=== PATIENT | female | born 1970 | race Caucasian/White ===

== ENCOUNTER → 2016-05-15 | Outpatient (CLI) | payer BC ==
--- NOTE | 2016-05-16 09:07 | MM ---
Reason for exam: screening (asymptomatic). Last mammogram was performed 3 years and 8 months ago. History: Patient had first child at age 37. Benign right breast needle localzation of the right breast, October 06, 2010. Benign US right guided VAD of the right breast, September 07, 2009. Benign ultrasound-guided core biopsy of the left breast, April 16, 2001. Core biopsy of the left breast. Took hormonal contraceptives for 6 years beginning at age 33. Physical Findings: A clinical breast exam by your physician is recommended on an annual basis and results should be correlated with mammographic findings. MG Screening Mammo w CAD Bilateral CC and MLO view(s) were taken. Prior study comparison: September 23, 2012, bilateral digital screening mammo w/CAD. September 20, 2010, CAD bilateral diagnostic mammogram. Finding: There are indeterminate round, segmental calcifications in the upper outer quadrant of the left breast. New finding since September 23, 2012 and September 20, 2010. ASSESSMENT: Incomplete: need additional imaging evaluation, BI-RAD 0 RECOMMENDATION: Special view mammogram of the left breast. [facility] will attempt to contact patient to return for supplemental views.
== END ==
LOC: RADMAMWWP 08:47
PROVIDERS: ATTEND Family Medicine
DX: Z12.31 Encounter for screening mammogram for malignant neoplasm of breast (principal)

== ENCOUNTER → 2016-05-18 | Outpatient (CLI) | payer BC ==
--- NOTE | 2016-05-18 09:12 | MM ---
Reason for exam: additional evaluation requested from abnormal screening. Last mammogram was performed less than 1 month ago. History: Patient had first child at age 37. Benign right breast needle localzation of the right breast, October 06, 2010. Benign US right guided VAD of the right breast, September 07, 2009. Benign ultrasound-guided core biopsy of the left breast, April 16, 2001. Core biopsy of the left breast. Took hormonal contraceptives for 6 years beginning at age 33. Physical Findings: Nurse did not find any significant physical abnormalities on exam. MG Work Up Mamm w CAD LT ML, CC with magnification, and ML with magnification view(s) were taken of the left breast. Prior study comparison: May 15, 2016, bilateral MG screening mammo w CAD. September 23, 2012, bilateral digital screening mammo w/CAD. Finding: There are new, indeterminate calcifications in the upper outer quadrant of the left breast for which a tissue biopsy is recommended. These results were verbally communicated with the patient and result sheet given to the patient on 05/18/16. ASSESSMENT: Suspicious, BI-RAD 4 RECOMMENDATION: Stereotactic core biopsy of the left breast. Called Dr. Hall with mammographic findings and the office states they will contact patient to set up appointment after they receive report. PRELIMINARY REPORT CALLED AND FAXED TO DR. HALL ON 05/18/16 AT 300/TMP.
== END ==
LOC: RADMAMWWP 06:57
PROVIDERS: ATTEND Family Medicine
DX: R92.8 Other abnormal and inconclusive findings on diagnostic imaging of breast (principal)

== ENCOUNTER → 2018-10-09 | Outpatient (CLI) | payer BC ==
--- NOTE | 2018-10-10 15:02 | MM ---
Reason for exam: screening (asymptomatic). Last mammogram was performed 2 years and 5 months ago. History: Patient had first child at age 37. Benign right breast needle localzation of the right breast, October 06, 2010. Benign US right guided VAD of the right breast, September 07, 2009. Benign ultrasound-guided core biopsy of the left breast, April 16, 2001. Core biopsy of the left breast. Took hormonal contraceptives for 6 years beginning at age 33. Physical Findings: A clinical breast exam by your physician is recommended on an annual basis and results should be correlated with mammographic findings. MG Screening Mammo w CAD Bilateral CC and MLO view(s) were taken. Prior study comparison: May 18, 2016, left breast MG work up mamm w CAD LT. May 15, 2016, bilateral MG screening mammo w CAD. The breast tissue is heterogeneously dense. This may lower the sensitivity of mammography. There is a stable left upper outer quadrant mass at middle depth. There are similar left calcifications with associated biopsy marker in the upper outer quadrant. No suspicious abnormality. ASSESSMENT: Benign, BI-RAD 2 RECOMMENDATION: Routine screening mammogram of both breasts in 1 year.
== END | disposition home or self-care (01) ==
LOC: RADMAMWWP 14:24
PROVIDERS: ATTEND Obstetrics & Gynecology
DX: Z12.31 Encounter for screening mammogram for malignant neoplasm of breast (principal)
CPT/HCPCS: 77067

== ENCOUNTER → 2020-05-24 | Outpatient (CLI) | payer BC ==
--- NOTE | 2020-05-24 11:18 | MM ---
Reason for exam: screening (asymptomatic). Last mammogram was performed 1 year and 7 months ago. History: Patient had first child at age 37. Benign right breast needle localzation of the right breast, October 06, 2010. Benign US right guided VAD of the right breast, September 07, 2009. Benign ultrasound-guided core biopsy of the left breast, April 16, 2001. Core biopsy of the left breast. Took hormonal contraceptives for 6 years beginning at age 33. Physical Findings: A clinical breast exam by your physician is recommended on an annual basis and results should be correlated with mammographic findings. MG Screening Mammo w CAD Bilateral CC and MLO view(s) were taken. Prior study comparison: October 09, 2018, bilateral MG screening mammo w CAD. May 18, 2016, left breast MG work up mamm w CAD LT. The breast tissue is heterogeneously dense. This may lower the sensitivity of mammography. There is chronic nodularity in the left breast. No significant changes when compared with prior studies. ASSESSMENT: Benign, BI-RAD 2 RECOMMENDATION: Routine screening mammogram of both breasts in 1 year.
== END | disposition home or self-care (01) ==
LOC: RADMAMWWP 07:12
PROVIDERS: ATTEND Family Medicine
DX: Z12.31 Encounter for screening mammogram for malignant neoplasm of breast (principal)
CPT/HCPCS: 77067

== ENCOUNTER → 2021-05-30 | Outpatient (CLI) | payer BC ==
--- NOTE | 2021-05-31 09:32 | MM ---
Reason for exam: screening (asymptomatic). Last mammogram was performed 1 year ago. History: Patient had first child at age 37. Benign right breast needle localzation of the right breast, October 06, 2010. Benign US right guided VAD of the right breast, September 07, 2009. Benign ultrasound-guided core biopsy of the left breast, April 16, 2001. Core biopsy of the left breast. Took hormonal contraceptives for 6 years beginning at age 33. Physical Findings: A clinical breast exam by your physician is recommended on an annual basis and results should be correlated with mammographic findings. MG 3D Screening Mammo W/Cad Bilateral CC and MLO view(s) were taken. Prior study comparison: May 24, 2020, bilateral MG screening mammo w CAD. October 09, 2018, bilateral MG screening mammo w CAD. The breast tissue is heterogeneously dense. This may lower the sensitivity of mammography. Previous mammotome biopsy in the left breast stable adjacent regional calcifications. 12-1 o'clock nodularity left breast has slightly increasing calcification, magnification views recommended. ASSESSMENT: Incomplete: need additional imaging evaluation, BI-RAD 0 RECOMMENDATION: Special view mammogram of the left breast. (magnification views for calcifications and nodularity) [facility] will attempt to contact patient to return for supplemental views.
== END | disposition home or self-care (01) ==
LOC: RADMAMWWP 08:05
PROVIDERS: ATTEND Family Medicine
DX: Z12.31 Encounter for screening mammogram for malignant neoplasm of breast (principal)
CPT/HCPCS: 77063; 77067

== ENCOUNTER → 2021-06-07 | Outpatient (CLI) | payer BC ==
--- NOTE | 2021-06-07 14:05 | MM ---
Reason for exam: additional evaluation requested from abnormal screening. Last mammogram was performed less than 1 month ago. History: Patient had first child at age 37. Benign stereotactic core biopsy of the left breast, 2018. Benign right breast needle localzation of the right breast, October 06, 2010. Benign US right guided VAD of the right breast, September 07, 2009. Benign ultrasound-guided core biopsy of the left breast, April 16, 2001. Core biopsy of the left breast. Took hormonal contraceptives for 6 years beginning at age 33. Physical Findings: Nurse did not find any significant physical abnormalities on exam. MG 3D Work Up W/Cad LT CC with magnification, LM with magnification, and LM view(s) were taken of the left breast. Prior study comparison: May 30, 2021, bilateral MG 3d screening mammo w/cad. May 24, 2020, bilateral MG screening mammo w CAD. The breast tissue is heterogeneously dense. This may lower the sensitivity of mammography. Stable nodules left breast. A few probably benign calcifications. 6 month follow up recommended. These results were verbally communicated with the patient and result sheet given to the patient on 06/07/21. ASSESSMENT: Probably benign, BI-RAD 3 RECOMMENDATION: Follow-up diagnostic mammogram of the left breast in 6 months.
== END | disposition home or self-care (01) ==
LOC: RADMAMWWP 13:29
PROVIDERS: ATTEND Family Medicine
DX: R92.8 Other abnormal and inconclusive findings on diagnostic imaging of breast (principal)
CPT/HCPCS: 77061; 77065

== ENCOUNTER → 2022-12-25 | Outpatient (CLI) | payer MEDICAID ==
--- NOTE | 2022-12-25 08:59 | USB ---
Reason for Exam: Follow-up at short interval from prior study. Patient History: Menarche at age 11. First Full-Term at age 37. Late child-bearing (after 30). Postmenopausal. Hormonal Contraceptives for 6 years from age 33 until age 39. 2018, Benign Stereotactic Core Biopsy on the left side. Core Biopsy on the Left side. 10/06/2010, Benign Excisional Biopsy on the right side. 09/07/2009, Benign Core Biopsy on the right side. 04/16/2001, Benign Ultrasound-Guided Core Biopsy on the left side. Risk Values: Qing 5 year model risk: 2.4%. NCI Lifetime model risk: 16.5%. Prior Study Comparison: 05/30/2021 Bilateral Screening Mammogram, [facility]. 06/07/2021 Left Diagnostic Mammogram, [facility]. 06/12/2022 Bilateral MG 3D screening mammo w/cad, [facility]. 06/15/2022 Left US breast workup limited , [facility]. Findings: The upper outer quadrant of the left breast, the axilla of the left breast and the retroareolar of the left breast were scanned. No solid or cystic masses are identified.. Overall Assessment: Negative, BI-RAD 1 Management: Screening Mammogram of both breasts in 6 months. A clinical breast exam by your physician is recommended on an annual basis and results should be correlated with mammographic findings. This exam should not preclude additional follow-up of suspicious palpable abnormalities. Results were given to the patient verbally at the time of exam. Electronically signed and approved by: Abdelrahman Nguyen M.D. Radiologis
== END | disposition home or self-care (01) ==
LOC: RADUSWWP 08:21
PROVIDERS: ATTEND Family Medicine
DX: N60.02 Solitary cyst of left breast (principal); Z78.0 Asymptomatic menopausal state

== ENCOUNTER 2023-03-10 11:15 | Emergency (ER) | payer MEDICAID ==
[2023-03-10 11:26] VITALS: TEMP 98.1
[2023-03-10 13:18] LABS: Amphetamine Screen,Urine Not Detected (NotDetected); Barbiturate Screen,Urine Not Detected (NotDetected); Benzodiazepines Screen,Urine Not Detected (NotDetected); Cocaine Screen,Urine Not Detected (NotDetected); Methadone Screen, Urine Not Detected (NotDetected); Opiate Screen,Urine Not Detected (NotDetected); Oxycodone Screen, Urine Not Detected (NotDetected); Phencyclidine Screen,Urine Not Detected (NotDetected); Tricyclic Antidepressant,Urine Not Detected (NotDetected); Urn Cannabinoid Scrn Not Detected (NotDetected)
--- NOTE | 2023-03-10 14:37 | ED ---
Psych HPI - General Source: patient, RN notes reviewed Mode of arrival: ambulatory Limitations: no limitations <Anthony Hoffman - Last Filed: 03/10/23 14:35> <Hemalatha Marinelli - Last Filed: 03/11/23 00:53> - General Chief Complaint: Psychiatric Symptoms Stated Complaint: restless-neuro disorder Time Seen by Provider: 03/10/23 11:25 - History of Present Illness Initial Comments: 52-year-old female presents emergency Department with family for psychiatric evaluation. Patient's been having extreme difficulty since the loss of her in September. Patient states she was initially placed on diazepam for sleep but states that she started having severe reactions and was weaned off this. She states she follow-up psychiatry who placed her on Zyprexa was 12 days that she started having severe reactions. She follow-up with neurology at this point because she is still having symptoms in which they have diagnosed her with akathisia. Patient was placed on propranolol by neurology. Patient initially felt improved but still having worsening symptoms which family states that she is extremely manic, restless and that they're concerned about her safety at home. (Anthony Hoffman) - Related Data Home Medications Medication Instructions Recorded Confirmed Inulin/Chromium Picolinate [Fiber 2 tab PO HS PRN 06/23/19 03/10/23 Gummies Chew] L.acidoph,Paracasei, B.lactis 1 cap PO DAILY 06/23/19 03/10/23 [Probiotic] Ergocalciferol (Vitamin D2) 1,250 mcg PO SA 03/10/23 03/10/23 [Drisdol (50,000 Iu)] Levothyroxine Sodium [Synthroid] 50 mcg PO DAILY 03/10/23 03/10/23 Propranolol [Inderal] 20 mg PO BID 03/10/23 03/10/23 [employer] Multivitamin 1 tab PO DAILY 03/10/23 03/10/23 Thyroid,Pork [Door Frame Builder Thyroid] 30 mg PO DAILY 03/10/23 03/10/23 Allergies Allergy/AdvReac Type Severity Reaction Status Date / Time metoclopramide [From Reglan] AdvReac Tremors, Verified 03/10/23 14:32 suicidal thoughts Review of Systems ROS Other: All systems not noted in ROS Statement are negative. <Anthony Hoffman - Last Filed: 03/10/23 14:35> ROS Other: All systems not noted in ROS Statement are negative. <Hemalatha Marinelli - Last Filed: 03/11/23 00:53> ROS Statement: Those systems with pertinent positive or pertinent negative responses have been documented in the HPI. Past Medical History Past Medical History: GERD/Reflux, Hyperlipidemia, Thyroid Disorder Additional Past Medical History / Comment(s): Hx problems with yeast. History of Any Multi-Drug Resistant Organisms: None Reported Past Surgical History: Section, Cholecystectomy, Tonsillectomy Additional Past Surgical History / Comment(s): [place] teeth. Laparoscopy. [place] Breast biopsies Past Anesthesia/Blood Transfusion Reactions: No Reported Reaction Past Psychological History: Anxiety Smoking Status: Never smoker Past Alcohol Use History: Occasional Past Drug Use History: None Reported - Past Family History Father Family Medical History: Cancer, Pulmonary Embolus Additional Family Medical History / Comment(s): prostate CA Mother Family Medical History: Deep Vein Thrombosis (DVT) <Anthony Hoffman - Last Filed: 03/10/23 14:35> General Exam Limitations: no limitations General appearance: alert, in no apparent distress Head exam: Present: atraumatic, normocephalic, normal inspection Eye exam: Present: normal appearance, PERRL, EOMI. Absent: scleral icterus, conjunctival injection, periorbital swelling ENT exam: Present: normal exam, normal oropharynx, mucous membranes moist Neck exam: Present: normal inspection. Absent: tenderness, meningismus, lymphadenopathy Respiratory exam: Present: normal lung sounds bilaterally. Absent: respiratory distress, wheezes, rales, rhonchi, stridor Cardiovascular Exam: Present: regular rate, normal rhythm, normal heart sounds. Absent: systolic murmur, diastolic murmur, rubs, gallop, clicks Neurological exam: Present: alert, oriented X3 Psychiatric exam: Present: anxious Skin exam: Present: warm, dry, intact, normal color. Absent: rash <Anthony Hoffman - Last Filed: 03/10/23 14:35> Course Vital Signs 03/10/23 03/10/23 11:18 18:56 Temperature 98.1 F Pulse Rate 78 87 Respiratory 20 18 Rate Blood Pressure 131/89 128/82 O2 Sat by Pulse 99 97 Oximetry Medical Decision Making <Hemalatha Marinelli - Last Filed: 03/11/23 00:53> - Medical Decision Making Was pt. sent in by a medical professional or institution (, DRAGAN, HEAD CUSTODIAN, urgent care, hospital, or group home...) When possible be specific @ -No Did you speak to anyone other than the patient for history (EMS, parent, family, police, friend...)? What history was obtained from this source @ -Spoke with family Did you review nursing and triage notes (agree or disagree)? Why? @ -I reviewed and agree with nursing and triage notes Were old charts reviewed (outside hosp., previous admission, EMS record, old EKG, old radiological studies, urgent care reports/EKG's, group home records)? Report findings @ -No old charts were reviewed Differential Diagnosis (chest pain, altered mental status, abdominal pain women, abdominal pain men, vaginal bleeding, weakness, fever, dyspnea, syncope, headache, dizziness, GI bleed, back pain, seizure, CVA, palpatations, mental health, musculoskeletal)? @ -Differential Mental Health Depression, anxiety, bipolar, psychosis, schizophrenia, borderline personality, situational depression, adjustment disorder, behavioral disorder, brain tumor, malingering, substance abuse, encephalopathy, medication reaction, dementia, hypothyroidism, degenerative neurologic disorder, lupus.... This is not meant to be all-inclusive list EKG interpreted by me (3pts min.). @ -Not completed X-rays interpreted by me (1pt min.). @ -None done CT interpreted by me (1pt min.). @ -None done U/S interpreted by me (1pt. min.). @ -None done What testing was considered but not performed or refused? (CT, X-rays, U/S, labs)? Why? @ -None What meds were considered but not given or refused? Why? @ -None Did you discuss the management of the patient with other professionals (professionals i.e. , DRAGAN, HEAD CUSTODIAN, lab, RT, psych nurse, manager social media, missile and missile checkout technician, teacher, us customs and border officer, correctional case records supervisor)? Give summary @ -discussed care with EPS nurse Madeline Was smoking cessation discussed for >3mins.? @ -No Was critical care preformed (if so, how long)? @ -No Were there social determinants of health that impacted care today? How? (Homelessness, low income, unemployed, alcoholism, drug addiction, transportation, low edu. Level, literacy, decrease access to med. care, [facility], rehab)? @ -No Was there de-escalation of care discussed even if they declined (Discuss DNR or withdrawal of care, Hospice)? DNR status @ -No What co-morbidities impacted this encounter? (DM, HTN, Smoking, COPD, CAD, Cancer, CVA, ARF, Chemo, Hep., AIDS, mental health diagnosis, sleep apnea, morbid obesity)? @ -Depression Was patient admitted / discharged? Hospital course, mention meds given and route, prescriptions, significant lab abnormalities, going to OR and other pertinent info. @ -Upon arrival patient was placed into 24. She is evaluated by EPS. They do feel that the patient is stable for discharge home. She does have family that will take care of her. Instructed to follow-up with her psychiatrist return for any new or worsening symptoms. Patient was agreeable to plan she was discharged in stable condition Undiagnosed new problem with uncertain prognosis? @ -No Drug Therapy requiring intensive monitoring for toxicity (Heparin, Nitro, Insulin, Cardizem)? @ -No Were any procedures done? @ -No Diagnosis/symptom? @ -Acute anxiety/depression, acute akathesia Acute, or Chronic, or Acute on Chronic? @ -Acute on chronic Uncomplicated (without systemic symptoms) or Complicated (systemic symptoms)? @ -Complicated Side effects of treatment? @ -No Exacerbation, Progression, or Severe Exacerbation? @ -No Poses a threat to life or bodily function? How? (Chest pain, [place], [place], pneumonia, PE, COPD, DKA, ARF, appy, cholecystitis, CVA, Diverticulitis, Homicidal, Suicidal, threat to staff... and all critical care pts) @ -No (Hemalatha Marinelli) - Lab Data Lab Results 03/10/23 Range/Units 12:09 Urine Opiates Screen Not Detected (NotDetected) Ur Oxycodone Screen Not Detected (NotDetected) Urine Methadone Screen Not Detected (NotDetected) Ur Propoxyphene Screen Not Detected (NotDetected) Ur Barbiturates Screen Not Detected (NotDetected) U Tricyclic Antidepress Not Detected (NotDetected) Ur Phencyclidine Scrn Not Detected (NotDetected) Ur Amphetamines Screen Not Detected (NotDetected) U Methamphetamines Scrn Not Detected (NotDetected) U Benzodiazepines Scrn Not Detected (NotDetected) Urine Cocaine Screen Not Detected (NotDetected) U Marijuana (THC) Screen Not Detected (NotDetected) Disposition <Anthony Hoffman - Last Filed: 03/10/23 14:35> Is patient prescribed a controlled substance at d/c from ED?: No Time of Disposition: 18:52 <Hemalatha Marinelli - Last Filed: 03/11/23 00:53> Clinical Impression: Akathisia Disposition: HOME SELF-CARE Condition: Stable Instructions (If sedation given, give patient instructions): Extrapyramidal Symptoms (ED) Referrals: Brittney Eason MD [Primary Care Provider] - 1-2 days
[2023-03-10 19:15] VITALS: BP 128/82; PULSE 87; RESP 18
== END 2023-03-10 18:57 | disposition home or self-care (01) ==
LOC: EC 11:15
DX: G25.71 Drug induced akathisia (principal); E07.9 Disorder of thyroid, unspecified; Z79.890 Hormone replacement therapy; Z86.59 Personal history of other mental and behavioral disorders; Z88.8 Allergy status to other drugs, medicaments and biological substances
CPT/HCPCS: 80306; 99284

== ENCOUNTER 2023-03-14 10:38 | Emergency (ER) | payer MEDICAID ==
[2023-03-14 11:34] VITALS: TEMP 98.9
--- NOTE | 2023-03-14 14:16 | ED ---
Psych HPI - General Chief Complaint: Psychiatric Symptoms Stated Complaint: mental health Time Seen by Provider: 03/14/23 13:39 Source: patient, family, RN notes reviewed Mode of arrival: ambulatory - History of Present Illness Initial Comments: 52-year-old female here for evaluation for anxiety and mood swings. Family is coming in with her. Patient states she does not feel suicidal or homicidal but family is in fear that she may harm herself unintentionally. She has been demonstrating mood swings she did present with a list that was typed up by family members of her different activities jumpiness please see this as it is attached to the chart. No alcohol or drugs reported. She had previously been evaluated here she had previously been on temazepam and later switched over to Zyprexa which she states had some similar affects his Reglan did with her. She now presents feeling very agitated jumpy. No cognitive deficits reported. MD Complaint: other - Related Data Home Medications Medication Instructions Recorded Confirmed Inulin/Chromium Picolinate [Fiber 2 tab PO HS PRN 06/23/19 03/14/23 Gummies Chew] L.acidoph,Paracasei, B.lactis 1 cap PO DAILY 06/23/19 03/14/23 [Probiotic] Ergocalciferol (Vitamin D2) 1,250 mcg PO SA 03/10/23 03/14/23 [Drisdol (50,000 Iu)] Levothyroxine Sodium [Synthroid] 50 mcg PO DAILY 03/10/23 03/14/23 Propranolol [Inderal] 20 mg PO BID 03/10/23 03/14/23 [employer] Multivitamin 1 tab PO DAILY 03/10/23 03/14/23 Thyroid,Pork [Quality Assurance Director Thyroid] 30 mg PO DAILY 03/10/23 03/14/23 Pyridoxine HCl (Vitamin B6) 100 mg PO DAILY 03/14/23 03/14/23 [Vitamin B-6] Previous Rx's Medication Instructions Recorded LORazepam [Ativan] 1 mg PO TID 3 Days #9 tab 03/14/23 Allergies Allergy/AdvReac Type Severity Reaction Status Date / Time citalopram [From Celexa] AdvReac Severe Tremors, Verified 03/14/23 14:12 suicidal thoughts(Contraindicated med in [place]) metoclopramide [From Reglan] AdvReac Severe Tremors, Verified 03/14/23 14:12 suicidal thoughts(Contraindicated med in [place]) olanzapine [From Zyprexa] AdvReac Severe Tremors, Verified 03/14/23 14:12 suicidal thoughts(Contraindicated med in [place]) paroxetine [From Paxil] AdvReac Severe Tremors, Verified 03/14/23 14:12 suicidal thoughts(Contraindicated med in [place]) sertraline [From Zoloft] AdvReac Severe Tremors, Verified 03/14/23 14:12 suicidal thoughts(Contraindicated med in [place]) venlafaxine [From Effexor] AdvReac Severe Tremors, Verified 03/14/23 14:12 suicidal thoughts(Contraindicated med in [place]) Review of Systems ROS Statement: Those systems with pertinent positive or pertinent negative responses have been documented in the HPI. ROS Other: All systems not noted in ROS Statement are negative. Past Medical History Past Medical History: GERD/Reflux, Hyperlipidemia, Thyroid Disorder Additional Past Medical History / Comment(s): Hx problems with yeast. History of Any Multi-Drug Resistant Organisms: None Reported Past Surgical History: Section, Cholecystectomy, Tonsillectomy Additional Past Surgical History / Comment(s): Kerkhoven teeth. Laparoscopy. Mendez Breast biopsies Past Anesthesia/Blood Transfusion Reactions: No Reported Reaction Past Psychological History: Anxiety Smoking Status: Never smoker Past Alcohol Use History: Occasional Past Drug Use History: None Reported - Past Family History Father Family Medical History: Cancer, Pulmonary Embolus Additional Family Medical History / Comment(s): prostate CA Mother Family Medical History: Deep Vein Thrombosis (DVT) General Exam - General Exam Comments Initial Comments: This is a well-developed well-nourished awake alert oriented 2 female who does appear very anxious Limitations: no limitations General appearance: alert, anxious, in distress Head exam: Present: atraumatic, normocephalic, normal inspection Eye exam: Present: normal appearance, PERRL, EOMI. Absent: scleral icterus, conjunctival injection, periorbital swelling ENT exam: Present: normal exam, mucous membranes moist Neck exam: Present: normal inspection, full ROM. Absent: tenderness, meningismus, lymphadenopathy Respiratory exam: Present: normal lung sounds bilaterally. Absent: respiratory distress, wheezes, rales, rhonchi, stridor Cardiovascular Exam: Present: regular rate, normal rhythm, normal heart sounds. Absent: systolic murmur, diastolic murmur, rubs, gallop, clicks GI/Abdominal exam: Present: soft, normal bowel sounds. Absent: distended, tenderness, guarding, rebound, rigid Extremities exam: Present: normal inspection, full ROM, normal capillary refill. Absent: tenderness, pedal edema, joint swelling, calf tenderness Back exam: Present: normal inspection, full ROM Neurological exam: Present: alert, oriented X3, CN II-XII intact Psychiatric exam: Present: anxious Skin exam: Present: warm, dry, intact, normal color. Absent: rash Course Vital Signs 03/14/23 11:14 Temperature 98.9 F Pulse Rate 78 Respiratory 18 Rate Blood Pressure 110/74 O2 Sat by Pulse 99 Oximetry Medical Decision Making - Medical Decision Making The patient was evaluated by the [facility] service she saw Dr. Gold suicidal or homicidal at this time. The plan after discussion with the patient and family member by [facility] personnel is for outpatient treatment with [facility] and her private family physician. There is good with her she'll be sent home with a short course of oral Ativan. Follow-up when necessary. Was pt. sent in by a medical professional or institution (, PA, [facility], urgent care, hospital, or group home...) When possible be specific @ -No Did you speak to anyone other than the patient for history (EMS, parent, family, police, friend...)? What history was obtained from this source @ -Family Did you review nursing and triage notes (agree or disagree)? Why? @ -I reviewed and agree with nursing and triage notes Were old charts reviewed (outside hosp., previous admission, EMS record, old EKG, old radiological studies, urgent care reports/EKG's, group home records)? Report findings @ -No old charts were reviewed Differential Diagnosis (chest pain, altered mental status, abdominal pain women, abdominal pain men, vaginal bleeding, weakness, fever, dyspnea, syncope, headache, dizziness, GI bleed, back pain, seizure, CVA, palpatations, mental health, musculoskeletal)? @ -Production, P TSD EKG interpreted by me (3pts min.). @ -Not done] X-rays interpreted by me (1pt min.). @ -None done CT interpreted by me (1pt min.). @ -None done U/S interpreted by me (1pt. min.). @ -None done What testing was considered but not performed or refused? (CT, X-rays, U/S, labs)? Why? @ -None What meds were considered but not given or refused? Why? @ -None Did you discuss the management of the patient with other professionals (professionals i.e. DrRamesh, PA, [facility], lab, RT, psych nurse, foster care social worker, zigzag elastic attacher, teacher, community reinvestment act officer, rn case management)? Give summary @ -Sebas from [facility] Was smoking cessation discussed for >3mins.? @ -No Was critical care preformed (if so, how long)? @ -No Were there social determinants of health that impacted care today? How? (Homelessness, low income, unemployed, alcoholism, drug addiction, transportation, low edu. Level, literacy, decrease access to med. care, usp, rehab)? @ -No Was there de-escalation of care discussed even if they declined (Discuss DNR or withdrawal of care, Hospice)? DNR status @ -No What co-morbidities impacted this encounter? (DM, HTN, Smoking, COPD, CAD, Cancer, CVA, ARF, Chemo, Hep., AIDS, mental health diagnosis, sleep apnea, morbid obesity)? @ -None Was patient admitted / discharged? Hospital course, mention meds given and route, prescriptions, significant lab abnormalities, going to OR and other pertinent info. @ -hospital course H was discharged with outpatient follow-up with her private medical doctor as well as [facility] with a short prescription for Ativan 1 mg 3 times a day 3 days Undiagnosed new problem with uncertain prognosis? @ -No Drug Therapy requiring intensive monitoring for toxicity (Heparin, Nitro, Insulin, Cardizem)? @ -No Were any procedures done? @ -No Diagnosis/symptom? @ -Depression, anxiety Acute, or Chronic, or Acute on Chronic? @ -Acute Uncomplicated (without systemic symptoms) or Complicated (systemic symptoms)? @ -default Side effects of treatment? @ -No Exacerbation, Progression, or Severe Exacerbation? @ -No Poses a threat to life or bodily function? How? (Chest pain, USA, ID, pneumonia, PE, COPD, DKA, ARF, appy, cholecystitis, CVA, Diverticulitis, Homicidal, Suicidal, threat to staff... and all critical care pts) @ -No - Lab Data Lab Results 03/14/23 Range/Units 14:11 Urine Opiates Screen Not Detected (NotDetected) Ur Oxycodone Screen Not Detected (NotDetected) Urine Methadone Screen Not Detected (NotDetected) Ur Propoxyphene Screen Not Detected (NotDetected) Ur Barbiturates Screen Not Detected (NotDetected) U Tricyclic Antidepress Not Detected (NotDetected) Ur Phencyclidine Scrn Not Detected (NotDetected) Ur Amphetamines Screen Not Detected (NotDetected) U Methamphetamines Scrn Not Detected (NotDetected) U Benzodiazepines Scrn Not Detected (NotDetected) Urine Cocaine Screen Not Detected (NotDetected) U Marijuana (THC) Screen Not Detected (NotDetected) Disposition Clinical Impression: Depression, Acute anxiety Disposition: HOME SELF-CARE Condition: Good Instructions (If sedation given, give patient instructions): Depression (ED), Anxiety (ED) Prescriptions: LORazepam [Ativan] 1 mg PO TID 3 Days #9 tab Is patient prescribed a controlled substance at d/c from ED?: Yes If prescribed controlled substance>3 days was MAPS reviewed?: Yes Referrals: Brittney Eason MD [Primary Care Provider] - 1-2 days Decision Date: 03/14/23 Decision Time: 19:46
[2023-03-14 14:58] LABS: Amphetamine Screen,Urine Not Detected (NotDetected); Barbiturate Screen,Urine Not Detected (NotDetected); Benzodiazepines Screen,Urine Not Detected (NotDetected); Cocaine Screen,Urine Not Detected (NotDetected); Methadone Screen, Urine Not Detected (NotDetected); Opiate Screen,Urine Not Detected (NotDetected); Oxycodone Screen, Urine Not Detected (NotDetected); Phencyclidine Screen,Urine Not Detected (NotDetected); Tricyclic Antidepressant,Urine Not Detected (NotDetected); Urn Cannabinoid Scrn Not Detected (NotDetected)
[2023-03-14] MEDS ORDERED: LORazepam 1 MG TAB PO STA (18:03)
[2023-03-14 20:02] VITALS: BP 118/74; PULSE 80; RESP 16
== END 2023-03-14 20:01 | disposition home or self-care (01) ==
LOC: EC 10:38
DX: F32.A Depression, unspecified (principal); F41.9 Anxiety disorder, unspecified; E07.9 Disorder of thyroid, unspecified; Z86.59 Personal history of other mental and behavioral disorders; Z79.890 Hormone replacement therapy; Z88.8 Allergy status to other drugs, medicaments and biological substances; Z90.49 Acquired absence of other specified parts of digestive tract; Z88.6 Allergy status to analgesic agent; Z88.1 Allergy status to other antibiotic agents
CPT/HCPCS: 80306; 82075; 99285

== ENCOUNTER → 2023-10-03 | Outpatient (CLI) | payer BC ==
--- NOTE | 2023-10-04 17:05 | MM ---
Reason for Exam: Screening (asymptomatic). Last mammogram was performed 1 year(s) and 3 month(s) ago. Patient History: Menarche at age 11. First Full-Term at age 37. Late child-bearing (after 30). Postmenopausal. Hormonal Contraceptives for 6 years from age 33 until age 39. 2018, Benign Stereotactic Core Biopsy on the left side. Core Biopsy on the Left side. 10/06/2010, Benign Excisional Biopsy on the right side. 09/07/2009, Benign Core Biopsy on the right side. 04/16/2001, Benign Ultrasound-Guided Core Biopsy on the left side. Risk Values: Qing 5 year model risk: 2.4%. NCI Lifetime model risk: 16.3%. Prior Study Comparison: 05/30/2021 Bilateral Screening Mammogram, [facility]. 06/07/2021 Left Diagnostic Mammogram, [facility]. 06/12/2022 Bilateral MG 3D screening mammo w/cad, [facility]. Tissue Density: There are scattered areas of fibroglandular density. Findings: Analyzed By CAD. Pattern appears stable. There are chronic nodules some of which contain calcification in the left breast. Surgical clip is within the left breast No suspicious groups of microcalcifications, spiculated or lobular masses, architectural distortion or other secondary signs of malignancy are mammographically apparent. Overall Assessment: Benign, BI-RAD 2 Management: Screening Mammogram of both breasts in 1 year. A negative mammogram report should not preclude additional follow up of suspicious palpable abnormalities. Patient should continue monthly self breast exam. A clinical breast exam by your physician is recommended on an annual basis and results should be correlated with mammographic findings. Note on Qing scores and lifetime risk: 1. A Qing score greater than 3% is considered moderate risk. If this is the case, consider specialist referral to assess eligibility for a risk reducing agent. 2. If overall lifetime risk for the development of breast cancer is 20% or higher, the patient may qualify for future screening with alternating mammogram and breast MRI. Electronically signed and approved by: Gray Roman D.O. Radiologis
== END | disposition home or self-care (01) ==
LOC: RADMAMWWP 12:34
PROVIDERS: ATTEND Family Medicine
DX: Z12.31 Encounter for screening mammogram for malignant neoplasm of breast (principal); Z78.0 Asymptomatic menopausal state
CPT/HCPCS: 77063; 77067

== ENCOUNTER → 2023-10-07 | Outpatient (CLI) | payer BC ==
[2023-10-07 16:12] LABS: ALT 24 U/L (8-44); AST 21 U/L (13-35); Albumin 4.5 g/dL (3.8-4.9); Albumin/Globulin Ratio 1.61 Ratio (1.60-3.17); Alkaline Phosphatase 99 U/L (41-126); BUN/Creat Ratio 20.62 Ratio (12.00-20.00); Blood Urea Nitrogen 16.5 mg/dL (9.0-27.0); Calcium 9.7 mg/dL (8.7-10.3); Carbon Dioxide 27.3 mmol/L (21.6-31.8); Chloride 104 mmol/L (96-109); Chol/HDL Ratio 4.29 Ratio; Globulin 2.8 g/dL (1.6-3.3); Glucose 93 mg/dL (70-110); LDL Cholesterol,Calculated 163.1 mg/dL (0.0-131.0); Potassium 4.5 mmol/L (3.5-5.5); Sodium 140 mmol/L (135-145); Total Bilirubin 0.3 mg/dL (0.3-1.2); Total Protein 7.3 g/dL (6.2-8.2)
[2023-10-07 16:31] LABS: Basophils # (A) 0.05 X 10*3/uL (0.00-0.10); Basophils % (A) 0.9 %; Eosinophils % (A) 1.8 %; HCT 44.6 % (37.2-46.3); HGB 14.8 g/dL (12.0-15.0); Lymphocytes # (A) 1.27 X 10*3/uL (0.90-5.00); Lymphocytes % (A) 23.3 %; MCH 30.8 pg (27.0-32.0); MCHC 33.2 g/dL (32.0-37.0); MCV 92.9 FL (80.0-97.0); Mean Platelet Volume 9.4 FL (9.5-12.2); Monocytes # (A) 0.26 X 10*3/uL (0.20-1.00); Monocytes % (A) 4.8 %; NRBC Per 100 WBC 0 X 10*3/uL (0.00-0.01); Neutrophils # (A) 3.77 X 10*3/uL (1.80-7.70); Platelet Count 301 X 10*3/uL (140-440); RDW 12.9 % (11.5-14.5); WBC 5.46 X 10*3/uL (4.50-10.00)
== END | disposition home or self-care (01) ==
LOC: LABWHC1 08:16
PROVIDERS: ATTEND Family Medicine
DX: Z00.00 Encounter for general adult medical examination without abnormal findings (principal)
CPT/HCPCS: 36415; 80053; 80061; 84439; 84443; 85025

== ENCOUNTER → 2024-02-28 | Outpatient (CLI) | payer BC ==
[2024-02-28 15:36] LABS: T4, Free (Free Thyroxine) 1.22 ng/dL (0.80-1.80)
== END | disposition home or self-care (01) ==
LOC: LABWHC1 10:20
PROVIDERS: ATTEND Family Medicine
DX: E06.3 Autoimmune thyroiditis (principal)
CPT/HCPCS: 36415; 84439; 84443